=== PATIENT | female | born 1995 | race Caucasian/White ===

== ENCOUNTER 2017-09-14 11:28 | Day surgery (SDC) | payer OTHER ==
[~2017-09-14 11:28] MED LIST: DEXAMETHASONE 4 MG/ML 1 ML INJ; ONDANSETRON 4 MG INJ; SUCCINYLCHOLINE CHLORIDE 100 MG/5 ML SYG IV
[2017-09-14] MEDS ORDERED: FENTAnyl 50 MCG/ML VIAL (12:07)
[2017-09-14] MEDS ORDERED: MIDAZOLAM 1 MG/ML 2 ML INJ (12:07)
[2017-09-14] MEDS ORDERED: PROPOFOL 20 ML (12:08)
[2017-09-14] MEDS ORDERED: LIDOCAINE 2% (SDV) 5 ML INJ ×2 (12:08→13:15)
[2017-09-14] MEDS ORDERED: METOCLOPRAMIDE 10 MG INJ (12:10)
[2017-09-14] MEDS ORDERED: CEFAZOLIN 1 GM INJ ×3 (12:11→13:42)
[2017-09-14] MEDS ORDERED: SUGAMMADEX SODIUM 200 MG/2 ML VIAL IV ×2 (12:19→12:25)
[2017-09-14] MEDS: BUPIVACAINE 0.25%/EPI (MDV) 50 ML VIAL INJ (13:14)
[2017-09-14] MEDS ORDERED: ONDANSETRON 4 MG INJ (13:15)
[2017-09-14] MEDS: TRIAMCINOLONE ACET 40 MG/ML INJ (13:15)
[2017-09-14] MEDS ORDERED: PROPOFOL 0 ML (13:15)
[2017-09-14] MEDS ORDERED: DEXAMETHASONE 4 MG/ML 1 ML INJ (13:15)
[2017-09-14] MEDS ORDERED: SUCCINYLCHOLINE CHLORIDE 100 MG/5 ML SYG IV (13:15)
[2017-09-14] MEDS: HYDROmorphONE 1 MG/5 ML IV SYRINGE IV (13:52)
[2017-09-14] MEDS ORDERED: OXYCODONE/ACETAMINOPHEN (5/325) TAB PO ×2 (14:00)
[2017-09-14] MEDS ORDERED: HYDROmorphONE 1 MG/5 ML IV SYRINGE IV ×2 (14:00)
[2017-09-14] MEDS ORDERED: ONDANSETRON 4 MG INJ IV (14:00)
[2017-09-14] MEDS ORDERED: FENTAnyl 50 MCG/ML VIAL IV ×3 (14:00)
[2017-09-14] MEDS ORDERED: LABETALOL HCL 20MG INJ (14:29)
[2017-09-14] MEDS: LABETALOL HCL 20MG INJ IV ×2 (14:31→14:42)
== END 2017-09-14 15:40 | disposition home or self-care (01) ==
LOC: SDS 11:28
DX: J35.01 Chronic tonsillitis (principal)
CPT/HCPCS: 42826; 88304